=== PATIENT | male | born 1945 | race Caucasian/White ===

== ENCOUNTER 2019-10-06 06:08 | Day surgery (SDC) | payer MEDICARE, OTHER ==
[~2019-10-06] VITALS: Ht 195.6 cm; Wt 120.0 kg
[~2019-10-06 06:08] MED LIST: ASCO-184 PO; ASPI-650 PO; ATOR40TA78 PO; CHOL10003 PO; DILT240C77 PO; DOXE10CA PO; EMPA25TA PO; FURO-92 PO; GLUC-121 PO; LOSA100T14 PO; METF1000 PO; OMEG1CAP23 PO; OMEP40CA42 PO; POTA20TA89 PO; PSYL3.4P5 PO; [UNRECOGNIZED DRUG - REMARK]; novolog SC; ozempic INJ; tresiba INJ
[2019-10-06] MEDS ORDERED: LIDOCAINE 1%, 20ML ONE (06:37)
[2019-10-06] MEDS ORDERED: EPINEPHRINE TOPICAL SOLN 1 MG/ML, 30ML ONE (06:37)
[2019-10-06] MEDS ORDERED: morphine SULFATE/PF 1 MG/ML, 10ML ONE (06:37)
[2019-10-06] MEDS ORDERED: BUPIVACAINE/PF-EPI 0.25% 1:200K ONE (06:37)
[2019-10-06 06:58] VITALS: BP 145/70
[2019-10-06] MEDS ORDERED: LACTATED RINGERS 1,000 ML IV SCH (07:07)
[2019-10-06] MEDS ORDERED: CHLORHEXIDINE 15 ML UDC MM STA (07:08)
[2019-10-06] MEDS ORDERED: CHLORHEXIDINE 15 ML UDC ONE (07:26)
[2019-10-06] MEDS ORDERED: FENTANYL PF 100 MCG/2ML IV PRN (07:30)
[2019-10-06] MEDS ORDERED: PROMETHAZINE 25 MG/ML, 1ML IVPush PRN (07:30)
[2019-10-06] MEDS ORDERED: ACETAMINOPHEN 325 MG TABLET PO PRN (07:30)
[2019-10-06] MEDS ORDERED: FENTANYL PF 100 MCG/2ML ONE (07:30)
[2019-10-06] MEDS ORDERED: OXYcodone 5 MG/5 ML ORAL.SOL UDC PO PRN (07:30)
[2019-10-06] MEDS ORDERED: CEFAZOLIN 1,000 MG ONE ×3 (07:32→08:14)
[2019-10-06] MEDS ORDERED: PROPOFOL 10 MG/ML, 20ML ONE ×2 (08:45)
[2019-10-06] MEDS ORDERED: ONDANSETRON 2MG/ML, 2ML ONE (08:45)
[2019-10-06] MEDS ORDERED: EPHEDRINE 50 MG/ML, 1ML ONE (08:46)
[2019-10-06] MEDS ORDERED: OXYcodone 5 MG/5 ML ORAL.SOL UDC ONE (09:21)
[2019-10-06] MEDS ORDERED: ACETAMINOPHEN 650 MG/20.3 ML UDC ONE (09:21)
[2019-10-06] MEDS ORDERED: KETOROLAC 30 MG/1 ML ONE (09:21)
[2019-10-06] MEDS ORDERED: KETOROLAC 30 MG/1 ML IVPush ONE ×2 (09:30)
== END 2019-10-06 10:50 | disposition home or self-care (01) ==
LOC: OUT 06:08
PROVIDERS: ATTEND Orthopaedic Surgery
DX: S83.251A Bucket-handle tear of lateral meniscus, current injury, right knee, initial encounter (principal); Z11.59 Encounter for screening for other viral diseases; S83.231A Complex tear of medial meniscus, current injury, right knee, initial encounter; M22.41 Chondromalacia patellae, right knee; M67.261 Synovial hypertrophy, not elsewhere classified, right lower leg; M25.461 Effusion, right knee; I10 Essential (primary) hypertension; I69.354 Hemiplegia and hemiparesis following cerebral infarction affecting left non-dominant side; I25.10 Atherosclerotic heart disease of native coronary artery without angina pectoris; E11.9 Type 2 diabetes mellitus without complications; G47.33 Obstructive sleep apnea (adult) (pediatric); K21.9 Gastro-esophageal reflux disease without esophagitis; Z79.4 Long term (current) use of insulin; Z79.899 Other long term (current) drug therapy; Z87.891 Personal history of nicotine dependence; Z88.8 Allergy status to other drugs, medicaments and biological substances; Z95.5 Presence of coronary angioplasty implant and graft; Z82.49 Family history of ischemic heart disease and other diseases of the circulatory system; X58.XXXA Exposure to other specified factors, initial encounter; Y93.89 Activity, other specified; Y92.89 Other specified places as the place of occurrence of the external cause; Y99.8 Other external cause status
CPT/HCPCS: 29880; 82330; 82803; 82947; 82962; 84132; 84295; 85014; 93005; J0690; J1885; J2274; J2405; J2704; J3010; U0001